=== PATIENT | female | born 1960 | race Caucasian/White ===

== ENCOUNTER → 2016-06-25 | Outpatient (CLI) | payer OTHER | END | disposition home or self-care (01) | LOC: CFH 16:00 | PROVIDERS: ATTEND Internal Medicine | DX: J18.9 Pneumonia, unspecified organism (principal); R91.8 Other nonspecific abnormal finding of lung field | CPT/HCPCS: 71250 ==

== ENCOUNTER → 2016-07-23 | Outpatient (CLI) | payer OTHER | END | disposition home or self-care (01) | LOC: RAD 09:11 | PROVIDERS: ATTEND Internal Medicine | DX: J98.11 Atelectasis (principal); J98.9 Respiratory disorder, unspecified | CPT/HCPCS: 71020 ==

== ENCOUNTER 2016-09-18 08:10 | Day surgery (SDC) | payer OTHER ==
[~2016-09-18] VITALS: Ht 162.6 cm; Wt 80.3 kg
[2016-09-18 08:39] VITALS: BP 123/74
[2016-09-18] MEDS ORDERED: SODIUM CHLORIDE 0.9% 1,000 ML IV SCH (08:41)
[2016-09-18] MEDS ORDERED: ALPR1TAB2 PO (08:43)
[2016-09-18] MEDS ORDERED: GABA600T2 PO (08:43)
[2016-09-18] MEDS ORDERED: BUPR1FIL PO (08:43)
[2016-09-18] MEDS ORDERED: CITA40TA12 PO (08:43)
[2016-09-18] MEDS ORDERED: LIDOCAINE 1%, 20ML ONE (09:14)
[2016-09-18] MEDS ORDERED: MIDAZOLAM 1 MG/ML, 5ML ONE ×2 (10:01→10:26)
[2016-09-18] MEDS ORDERED: FENTANYL PF 100 MCG/2ML ONE ×2 (10:02→10:26)
== END 2016-09-18 12:05 ==
LOC: OUT 08:10 → EDSTATUS 09:00 → OUT 12:05
DX: K73.8 Other chronic hepatitis, not elsewhere classified (principal); J45.909 Unspecified asthma, uncomplicated; D64.9 Anemia, unspecified; F41.9 Anxiety disorder, unspecified; F32.9 Major depressive disorder, single episode, unspecified; E78.5 Hyperlipidemia, unspecified; Z87.39 Personal history of other diseases of the musculoskeletal system and connective tissue; Z87.891 Personal history of nicotine dependence
CPT/HCPCS: 36415; 47000; 76700; 76942; 85610; 88307; 88313; 99156; 99157; J2250; J3010; J3490; J7030

== ENCOUNTER → 2017-10-07 | Outpatient (CLI) | payer OTHER ==
[~2017-10-07] MED LIST: ALPR1TAB2 PO; BUPR1FIL PO; CITA40TA12 PO; GABA600T2 PO; GADOBUTROL 10 MMOL/10 ML PFS ONE
== END | disposition home or self-care (01) ==
LOC: CFH 10:32
PROVIDERS: ATTEND Psychiatry & Neurology Neurology
DX: R90.82 White matter disease, unspecified (principal); H46.8 Other optic neuritis; R90.89 Other abnormal findings on diagnostic imaging of central nervous system
CPT/HCPCS: 70553; A9585

== ENCOUNTER 2017-12-26 13:35 | Observation (INO) | payer OTHER ==
[~2017-12-26] VITALS: Ht 162.6 cm; Wt 95.9 kg
[2017-12-26] VITALS (8 sets, daily range): BP systolic 95–129; BP diastolic 65–88
[~2017-12-26 13:35] MED LIST changes: -GADOBUTROL 10 MMOL/10 ML PFS ONE
[2017-12-26 14:41] LABS: BASOPHILS # (AUTO) 0.04 x10^3/uL (0-0.1); BASOPHILS % (AUTO) 1 % (0-1); EOSINOPHILS # (AUTO) 0.06 x10^3/uL (0-0.4); EOSINOPHILS % (AUTO) 1 % (1-7); LYMPHOCYTES # (AUTO) 1.41 x10^3/uL (1-3.4); LYMPHOCYTES % (AUTO) 21 % (22-44); MD NO; MEAN CORPUSCULAR HGB CONC 33.3 g/dL (32.4-35.8); MEAN CORPUSCULAR VOLUME 87.1 fL (80-100); MEAN PLATELET VOLUME 8.2 fL (7.4-10.4); MONOCYTES % (AUTO) 8 % (2-9); NEUTROPHILS # (AUTO) 4.72 x10^3/uL (1.8-6.8); NEUTROPHILS % (AUTO) 70 % (42-75); PLATELET COUNT 245 x10^3/uL (130-400); RED BLOOD COUNT 4.71 x10^6/uL (3.82-5.3)
[2017-12-26 14:51] LABS: ALANINE AMINOTRANSFERASE 27 U/L (12-78); ALBUMIN 3.8 g/dL (3.4-5.0); ANION GAP 5 mmol/L (5-15); CALCIUM 9.2 mg/dL (8.5-10.1); CHLORIDE 107 mmol/L (98-107); CREATININE 0.94 mg/dL (0.55-1.02)
[2017-12-26 14:53] LABS: ALKALINE PHOSPHATASE 136 U/L (45-117); BILIRUBIN,TOTAL 0.2 mg/dL (0.2-1.0); TOTAL PROTEIN 7.7 g/dL (6.4-8.2)
[2017-12-26] MEDS ORDERED: ACETAMINOPHEN 325 MG TABLET ONE (15:37)
[2017-12-26] MEDS ORDERED: ACETAMINOPHEN 325 MG TABLET PO ONE (16:00)
[2017-12-26] MEDS ORDERED: PLEASE ENTER ALLERGIES MC SCH (16:00)
[2017-12-26] MEDS ORDERED: DEXTROSE 4 GM TAB.CHEW PO PRN (16:30)
[2017-12-26] MEDS ORDERED: DEXTROSE 50%, 50ML SYRINGE IVPush PRN (16:30)
[2017-12-26] MEDS ORDERED: GLUCAGON 1 MG IM PRN (16:30)
[2017-12-26] MEDS: ENOXAPARIN 40 MG/0.4 ML SQ SCH (18:24)
[2017-12-26] MEDS: ACETAMINOPHEN 325 MG TABLET PO PRN (18:41)
[2017-12-26] MEDS: SODIUM CHLORIDE FLUSH 10ML SYR IVF SCH (20:23)
[2017-12-26] MEDS: CITALOPRAM 20 MG TABLET PO SCH (20:24)
[2017-12-26] MEDS: ALPRazolam 1MG TABLET PO SCH (20:25)
[2017-12-26] MEDS ORDERED: GABAPENTIN 300 MG CAPSULE PO SCH (21:00)
[2017-12-27] VITALS (8 sets, daily range): BP systolic 100–139; BP diastolic 65–84
[2017-12-27 05:40] LABS: CALCIUM 8.3 mg/dL (8.5-10.1); CHLORIDE 107 mmol/L (98-107)
[2017-12-27 05:41] LABS: BASOPHILS # (AUTO) 0.03 x10^3/uL (0-0.1); BASOPHILS % (AUTO) 1 % (0-1); EOSINOPHILS # (AUTO) 0.13 x10^3/uL (0-0.4); EOSINOPHILS % (AUTO) 2 % (1-7); LYMPHOCYTES # (AUTO) 2.25 x10^3/uL (1-3.4); LYMPHOCYTES % (AUTO) 35 % (22-44); MD NO; MEAN CORPUSCULAR HGB CONC 33.6 g/dL (32.4-35.8); MEAN CORPUSCULAR VOLUME 86.3 fL (80-100); MEAN PLATELET VOLUME 8.7 fL (7.4-10.4); MONOCYTES # (AUTO) 0.49 x10^3/uL (0.2-0.8); MONOCYTES % (AUTO) 8 % (2-9); NEUTROPHILS # (AUTO) 3.46 x10^3/uL (1.8-6.8); NEUTROPHILS % (AUTO) 54 % (42-75); PLATELET COUNT 237 x10^3/uL (130-400); RED BLOOD COUNT 4.26 x10^6/uL (3.82-5.3); RED CELL DISTRIBUTION WIDTH 13.9 % (9.6-15.2)
[2017-12-27 05:52] LABS: ALANINE AMINOTRANSFERASE 43 U/L (12-78); ALBUMIN 3.1 g/dL (3.4-5.0); ALKALINE PHOSPHATASE 131 U/L (45-117); ANION GAP 8 mmol/L (5-15); BILIRUBIN,TOTAL 0.3 mg/dL (0.2-1.0); CHOL/HDL RATIO 2.4; CHOLESTEROL, TOTAL 213 mg/dL (140-239); CREATININE 0.92 mg/dL (0.55-1.02); HDL CHOL % 41 % (28-40); HDL CHOLESTEROL (DIRECT) 88 mg/dL (40-60); LDL CHOLESTEROL,CALCULATED 112 mg/dL (54-169); LDL/HDL RATIO 1.3 (0.5-3.0); TOTAL PROTEIN 6.5 g/dL (6.4-8.2); TRIGLYCERIDES 64 mg/dL (50-200); VLDL CHOLESTEROL 13 mg/dL (0-25)
[2017-12-27] MEDS ORDERED: CITALOPRAM 20 MG TABLET PO SCH (09:00)
[2017-12-27] MEDS: SODIUM CHLORIDE FLUSH 10ML SYR IVF SCH ×2 (09:57→22:05)
[2017-12-27] MEDS: ALPRazolam 1MG TABLET PO SCH ×3 (09:57→21:00)
[2017-12-27] MEDS: BUPRENORPHINE/NALOXONE 2-0.5MG SL SCH (10:30)
[2017-12-27] MEDS: GABAPENTIN 400 MG CAPSULE PO SCH ×3 (13:30→22:05)
[2017-12-27] MEDS ORDERED: MAGNESIUM SULFATE 1 GM in SODIUM CHLORIDE 0.9% 50 ML IV ONE (15:00)
[2017-12-27] MEDS ORDERED: GADOBUTROL 10 MMOL/10 ML PFS ONE (15:45)
[2017-12-27 15:56] LABS: HEMOGLOBIN A1C 6.4 % (4.2-6.3)
[2017-12-27] MEDS: ACETAMINOPHEN 325 MG TABLET PO PRN (16:09)
[2017-12-27] MEDS: ENOXAPARIN 40 MG/0.4 ML SQ SCH (18:45)
[2017-12-27] MEDS: CITALOPRAM 20 MG TABLET PO SCH (22:05)
[2017-12-28] VITALS (7 sets, daily range): BP systolic 98–125; BP diastolic 66–86
[2017-12-28 04:53] LABS: ALANINE AMINOTRANSFERASE 109 U/L (12-78); ALBUMIN 3.2 g/dL (3.4-5.0); ANION GAP 6 mmol/L (5-15); CALCIUM 8.4 mg/dL (8.5-10.1); CHLORIDE 108 mmol/L (98-107); CREATININE 0.79 mg/dL (0.55-1.02)
[2017-12-28 04:55] LABS: ALKALINE PHOSPHATASE 155 U/L (45-117); BILIRUBIN,TOTAL 0.3 mg/dL (0.2-1.0); TOTAL PROTEIN 6.6 g/dL (6.4-8.2)
[2017-12-28] MEDS: SODIUM CHLORIDE 0.9% 1,000 ML IV SCH ×2 (06:37→14:30)
[2017-12-28] MEDS: ALPRazolam 1MG TABLET PO SCH ×2 (09:00→15:29)
[2017-12-28] MEDS: GABAPENTIN 400 MG CAPSULE PO SCH ×2 (09:00→15:29)
[2017-12-28] MEDS: SODIUM CHLORIDE FLUSH 10ML SYR IVF SCH (09:00)
[2017-12-28] MEDS: BUPRENORPHINE/NALOXONE 2-0.5MG SL SCH (09:00)
== END 2017-12-28 16:55 | disposition home or self-care (01) ==
LOC: ED 14:08 → EDIP 16:26 → INTOOBSV 16:26 → 4EST 17:45 → DCLOUNGE 12-28 16:42
PROVIDERS: ADMIT Hospitalist; ATTEND Hospitalist
DX: R55 Syncope and collapse (principal); G93.40 Encephalopathy, unspecified; E16.2 Hypoglycemia, unspecified; F32.9 Major depressive disorder, single episode, unspecified; F41.9 Anxiety disorder, unspecified; G89.29 Other chronic pain; M51.36 Other intervertebral disc degeneration, lumbar region; W18.30XA Fall on same level, unspecified, initial encounter; Z80.3 Family history of malignant neoplasm of breast; Z82.0 Family history of epilepsy and other diseases of the nervous system; Z82.49 Family history of ischemic heart disease and other diseases of the circulatory system; Z86.73 Personal history of transient ischemic attack (TIA), and cerebral infarction without residual deficits; Y93.89 Activity, other specified; Y92.89 Other specified places as the place of occurrence of the external cause; Z98.84 Bariatric surgery status; Z79.4 Long term (current) use of insulin; Z79.899 Other long term (current) drug therapy
CPT/HCPCS: 36415; 70450; 70553; 76700; 80053; 80061; 82550; 82962; 83036; 83525; 83605; 83735; 84100; 84206; 84443; 84681; 85025; 93005; 93306; 93880; 95819; 96365; 96372; 99285; A9585; G0378; J0572; J1650; J3475; J7030

== ENCOUNTER 2018-06-07 10:54 | Emergency (ER) | payer OTHER ==
[~2018-06-07] VITALS: Ht 157.5 cm; Wt 95.0 kg
[~2018-06-07 10:54] MED LIST changes: -GABA600T2 PO; +GABA600T7 PO
--- NOTE | 2018-06-07 11:11 | NUR ---
PT BIB [facility] FROM WORK FOR SEIZURE THIS MORNING, PT HAD AN AURA AND ASKED [facility] TO CALL EMS, LATER WAS FOUND UNRESPONSIVE WITH ORAL TRAUMA +POSTICTAL FOR EMS, NOW A&OX4 WITH C/O SAMPSON. PT REPORTING RECENT DECREASE IN XANAX DOSE FROM 3MG TO 2MG. CONNECTED TO ALL MONITORING, VSS. FAMILY AT BEDSIDE. CALL LIGHT WITHIN REACH. MD AT BEDSIDE FOR ASSESSMENT. AWAITING ORDERS
[2018-06-07] MEDS ORDERED: IBUPROFEN 600 MG TABLET ONE (11:18)
[2018-06-07] MEDS ORDERED: ACETAMINOPHEN 500 MG TABLET ONE (11:28)
[2018-06-07] MEDS ORDERED: IBUPROFEN 200 MG TABLET PO ONE (11:30)
[2018-06-07] MEDS ORDERED: ACETAMINOPHEN 500 MG TABLET PO ONE (11:30)
--- NOTE | 2018-06-07 11:36 | NUR ---
PT MEDICATED, UA COLLECTED AND SENT, AMB TO RESTROOM WITH ONE ASSIST. LAB AT BEDSIDE FOR COLLECTION. FAMILY AT BEDSIDE. CALL LIGHT WITHIN REACH.
[2018-06-07 11:44] LABS: MICROSCOPIC NOT IND
[2018-06-07 11:45] LABS: CULTURE INDICATED? NO
[2018-06-07 12:01] VITALS: BP 123/77
[2018-06-07 12:01] LABS: BASOPHILS # (AUTO) 0.04 x10^3/uL (0-0.1); BASOPHILS % (AUTO) 1 % (0-1); EOSINOPHILS # (AUTO) 0.05 x10^3/uL (0-0.4); EOSINOPHILS % (AUTO) 1 % (1-7); LYMPHOCYTES # (AUTO) 1.83 x10^3/uL (1-3.4); LYMPHOCYTES % (AUTO) 23 % (22-44); MD NO; MEAN CORPUSCULAR HEMOGLOBIN 27.7 pg (27.0-34.8); MEAN CORPUSCULAR HGB CONC 33.1 g/dL (32.4-35.8); MEAN CORPUSCULAR VOLUME 83.8 fL (80-100); MEAN PLATELET VOLUME 8.4 fL (7.4-10.4); MONOCYTES # (AUTO) 0.59 x10^3/uL (0.2-0.8); MONOCYTES % (AUTO) 7 % (2-9); NEUTROPHILS # (AUTO) 5.52 x10^3/uL (1.8-6.8); NEUTROPHILS % (AUTO) 69 % (42-75); PLATELET COUNT 229 x10^3/uL (130-400); RED BLOOD COUNT 5.01 x10^6/uL (3.82-5.3); RED CELL DISTRIBUTION WIDTH 16.6 % (9.6-15.2)
[2018-06-07 12:04] LABS: ALANINE AMINOTRANSFERASE 29 U/L (12-78); ALBUMIN 4.1 g/dL (3.4-5.0); ANION GAP 6 mmol/L (5-15); CALCIUM 9.3 mg/dL (8.5-10.1); CHLORIDE 110 mmol/L (98-107); CREATININE 1.12 mg/dL (0.55-1.02)
[2018-06-07 12:08] LABS: ALKALINE PHOSPHATASE 151 U/L (45-117); BILIRUBIN,TOTAL 0.3 mg/dL (0.2-1.0); TOTAL PROTEIN 7.7 g/dL (6.4-8.2); TROPONIN I < 0.015 ng/mL (0.000-0.045)
--- NOTE | 2018-06-07 12:30 | NUR ---
ALL RESULTS BACK AT THIS TIME, CHART UP FOR RECHECK. PT RESTING IN BED WITH FAMILY AT BEDSIDE. VSS. ALL NEEDS MET AT THIS TIME. CALL LIGHT WITHIN REACH
--- NOTE | 2018-06-07 12:51 | NUR ---
MD AT BEDSIDE TO UPDATE PT AND FAMILY ON POC.
== END 2018-06-07 12:59 | disposition home or self-care (01) ==
LOC: ED 11:42
DX: G40.409 Other generalized epilepsy and epileptic syndromes, not intractable, without status epilepticus (principal)
CPT/HCPCS: 36415; 80053; 81003; 83605; 84484; 85025; 99283